=== PATIENT | female | born 1995 | race Caucasian/White ===

== ENCOUNTER 2017-11-20 09:10 | Emergency (ER) | payer OTHER ==
--- NOTE | 2017-11-20 09:18 | ED ---
Upper Extremity Pain - HPI Summary HPI Summary: 22 female presents to ED with complaints of left hand pain around thumb and index finger at thumb that began last night after an injury. Patient states she rolled on it. States this morning pain increased some and became swollen and bruised. Has limited range of motion due to pain and swelling however does have ROM. Denies numbness/tingling. Is right hand dominant. Has been icing. Has not taken any medication. No other complaints. No PMHx. No wrist or arm pain. - History of Current Complaint Chief Complaint: EDExtremityUpper Stated Complaint: LT HAND INJURY Time Seen by Provider: 11/20/17 09:17 Hx Obtained From: Patient Mechanism Of Injury: Twisted Onset/Duration: Started Days Ago - last night 11/19/17, Traumatic, Still Present , Worse Since Timing: Constant Severity Initially: Mild Severity Currently: Moderate Pain Location: Hand - left Character: Dull, Aching Aggravating Factor(s): Movement Alleviating Factor(s): Rest, Ice Associated Signs & Symptoms: Positive: Swelling, Bruising. Negative: Weakness, Numbness/Tingling Related History: Dominant Hand Right - Allergies/Home Medications Allergies/Adverse Reactions: Allergies Allergy/AdvReac Type Severity Reaction Status Date / Time No Known Allergies Allergy Verified 11/20/17 09:15 Home Medications: Home Medications NK [No Home Medications Reported] 11/20/17 [History Confirmed 11/20/17] PMH/Surg Hx/FS Hx/Imm Hx Endocrine/Hematology History: Denies: Hx Anticoagulant Therapy, Hx Diabetes Cardiovascular History: Denies: Hx Hypertension Respiratory History: Denies: Hx Asthma - Surgical History Surgery Procedure, Year, and Place: n/a - Immunization History Immunizations Up to Date: Yes Infectious Disease History: No Infectious Disease History: Denies: Traveled Outside the [place] in Last 30 Days - Family History Known Family History: Positive: None - Social History Alcohol Use: Occasionally Substance Use Type: Reports: None Smoking Status (MU): Never Smoked Tobacco Review of Systems Constitutional: Negative Cardiovascular: Negative Respiratory: Negative Positive: Arthralgia, Myalgia, Decreased ROM - left hand , Edema Positive: Bruising Neurological: Negative All Other Systems Reviewed And Are Negative: Yes Physical Exam Triage Information Reviewed: Yes Vital Signs On Initial Exam: Initial Vitals Temp Pulse Resp BP Pulse Ox 97.7 F 76 16 120/67 99 11/20/17 09:12 11/20/17 09:12 11/20/17 09:12 11/20/17 09:12 11/20/17 09:12 Vital Signs Reviewed: Yes Appearance: Positive: Well-Appearing, Well-Nourished, Pain Distress - mild to moderate with movement of left hand Skin: Positive: Warm, Skin Color Reflects Adequate Perfusion, Dry, Other - ecchymosis of left posterior hand 1st dorsal interosseous region. Negative: Cold, Numb, Cyanosis @, Pale, Erythema @ Head/Face: Positive: Normal Head/Face Inspection Neck: Positive: Supple, Nontender Respiratory/Lung Sounds: Positive: Clear to Auscultation, Breath Sounds Present. Negative: Rales, Rhonchi, Wheezes Cardiovascular: Positive: Normal, RRR, Pulses are Symmetrical in both Upper and Lower Extremities - 2+ radial b/l. Negative: Murmur, Rub Musculoskeletal: Positive: Limited @ - with full flexion of left thumb and index finger due to pain and swelling, Pain @ - 1st dorsal interosseous region of left hand between thumb and index finger, Edema Left, Other - no crepitus, step off or obvious deformity other than swelling and ecchymosis. Negative: Strength/ROM Intact, Interruption @, Abnormal @ Neurological: Positive: Normal, Sensory/Motor Intact, Alert, Oriented to Person Place, Time, NV Bundle Intact Distally, Normal Gait Diagnostics - Vital Signs Vital Signs Temp Pulse Resp BP Pulse Ox 11/20/17 09:12 97.7 F 76 16 120/67 99 - Laboratory Lab Statement: Any lab studies that have been ordered have been reviewed, and results considered in the medical decision making process. - Radiology left hand Xray Interpretation: Positive (See Comments) - Fracture base of the first metacarpal. Radiology Interpretation Completed By: Radiologist - and myself Course/Dx - Course Course Of Treatment: given ibuprofen for pain and inflammation. ice for swelling. xray obtained and shows fracture of proximal first metacarpal. placed in thumb spica splint. aware of worsening signs and symptoms to watch out for. follow up with PCP. no other concerns. continue NSAID and RICE. given brace/raghavendra wrap. - Diagnoses Differential Diagnosis/HQI/PQRI: Positive: Contusion, Fracture (Closed), Strain , Sprain Provider Diagnoses: Hand fracture, left Discharge - Discharge Plan Condition: Stable Disposition: HOME Patient Education Materials: Hand Fracture (ED) Referrals: Joe Douglas MD [Primary Care Provider] - Christin Bruno MD [Medical Doctor] - Additional Instructions: Continue taking ibuprofen to help with pain and swelling. Elevate, rest and ice. Avoid use until symptoms improve. Keep splint applied. Follow up with PCP/ortho for further evaluation next week. Any new or worsening symptoms (increased pain, numbness/tingling, loss of circulation) please return and seek medical attention promptly.
[2017-11-20] MEDS ORDERED: Ibuprofen TAB* 600 MG PO ONE (10:21)
--- NOTE | 2017-11-20 11:01 | RAD ---
Indication: Left hand injury. 5 views of the left hand demonstrates a fracture through the base of the first metacarpal. No significant displacement is noted. No other fractures are noted. IMPRESSION: Fracture base of the first metacarpal.
[2017-11-20 11:15] VITALS: BP 114/78
== END 2017-11-20 11:14 | disposition home or self-care (01) ==
LOC: ED 09:10
DX: S62.232A Other displaced fracture of base of first metacarpal bone, left hand, initial encounter for closed fracture (principal); X58.XXXA Exposure to other specified factors, initial encounter; Y92.9 Unspecified place or not applicable
CPT/HCPCS: 29125; 99282; A9270-GY